=== PATIENT | male | born 1975 | race American Indian/Alaskan Native ===

== ENCOUNTER 2016-12-16 09:54 | Outpatient (CLI) | payer OTHER ==
--- NOTE | 2016-12-16 13:16 | Ultrasound Report ---
ULTRASOUND RENAL BILATERAL HISTORY: Chronic kidney disease. TECHNIQUE: transabdominal ultrasound with color Doppler interrogation. FINDINGS: The right kidney measures 11.7 x 5.3 x 4.9cm. Right renal cortex: 1.6cm. A superior pole cyst measures 0.8 cm. An inferior pole cyst measures 1.9 cm. The left kidney measures 11.2 x 5.5 x 4.5cm. Left renal cortex: 1.5cm. A superior pole cyst measures 0.9 cm. The kidneys are normal size, contour and position. There is increased renal parenchymal echotexture bilaterally. Corticomedullary differentiation is preserved. No evidence for calculus, mass, hydronephrosis or perinephric fluid. The views of the bladder and the region of the ureters appear normal. IMPRESSION: Renal parenchymal disease. Bilateral simple renal cysts.
== END 2016-12-16 09:55 | disposition home or self-care (01) ==
LOC: US 09:54 → EDSEX 09:54 → US 09:55
PROVIDERS: ATTEND Internal Medicine Nephrology
DX: N18.4 Chronic kidney disease, stage 4 (severe) (principal); N28.1 Cyst of kidney, acquired
CPT/HCPCS: 76770

== ENCOUNTER 2018-09-03 06:24 | Day surgery (SDC) | payer OTHER ==
[~2018-09-03 06:24] MED LIST: ANCEF/STERILE WATER 2 GM/20 ML 2 GM/20 ML SYRINGE IV NR; NACL 0.9% 1000 ML 1,000 ML IV SCH
[2018-09-03] MEDS ORDERED: NACL 0.9% 250ML 250 ML IV ONE (07:10)
[2018-09-03] MEDS ORDERED: HEPARIN/NS 5000 UNIT/500ML(CATH LAB) 500 ML IR ONE (08:10)
[2018-09-03] MEDS ORDERED: NACL 0.9% 250ML 250 ML ONE (08:10)
[2018-09-03] MEDS ORDERED: ANCEF/STERILE WATER 2 GM/20 ML 2 GM/20 ML SYRINGE IV ONE (08:43)
[2018-09-03] MEDS: SUBLIMAZE ONE ×2 (08:58→09:09)
[2018-09-03] MEDS: VERSED ONE ×2 (08:58→09:09)
[2018-09-03] MEDS: XYLOCAINE 2% INFILTRATI ONE ×2 (08:59→09:25)
[2018-09-03] MEDS: HEPARIN 10,000 UNITS/10 ML ONE ×4 (09:05→09:25)
--- NOTE | 2018-09-03 09:42 | Operative Report ---
Operative Report Operative Report: Operative note: Date: 09/03/2018 Preoperative diagnosis: Malfunctioning dialysis catheter on the right IJ Postoperative diagnosis: Same. Operation: Right PermCath exchange Surgeon: Chelsie Smith. Asst.: None Anesthesia: local with moderate sedation. EBL: Minimal Findings: New permacath in SVC atrial junction Indications: 43-year-old gentleman was noticed and hemodialysis to have PermCath malfunction. PermCath exchange was discussed with patient in details, all risks, benefits and alternatives of procedure were discussed, patient agreed and signed informed consent. Operative details: Patient was brought to asphalt plant laborer and positioned in the supine position with right upper chest PermCath prepped and draped in sterile fashion. A timeout performed and all team members in the agreement, we will Glidewire were inserted and advanced under fluoroscopic guidance through the venous and arterial ports of PermCath and advanced to inferior vena cava. Exit site was infiltrated with lidocaine around the PermCath site. Small incision was made just at the PermCath skin insertion point and dilated with hemostat, dissecting around cuff. However the graft appeared to be very close to the entrance site and required counter incision where cuff was dissected using Metzenbaum scissors. Old permacath was removed and new PermCath 19 cm was advanced over 2 Glidewire and inserted through the previous orifice into the proximal SVC. Wires were removed and ports were flushed with saline and checked for good blood flow. Cath ports were locked with heparin 1.6 mL in each. Patient tolerated procedure well and was transferred to PACU in stable condition.
--- NOTE | 2018-09-03 09:47 | Short Stay Summary ---
Short Stay Documentation Date of service: 09/03/18 - History H&P: obtained from office - Allergies and Medications Current Medications: Allergies No Known Allergies Allergy (Verified 09/03/18 07:08) Home Medications Medication Instructions Recorded Confirmed Last Taken Type HYDROcodone/ACETAMINOPHEN 5 mg PO BID PRN 09/03/18 09/03/18 08/31/18 History [Hydrocodone-Acetamin 5-325 mg] 1 tab Hydralazine HCl 50 mg PO TID 09/03/18 09/03/18 09/03/18 History 1 tab Labetalol [Normodyne TAB] 100 mg PO BID 09/03/18 09/03/18 09/02/18 History 1 tab glipiZIDE [Glipizide] 5 mg PO DAILY 09/03/18 09/03/18 09/02/18 History 1 tab Active Medications Cefazolin Sodium (Ancef/Sterile Water 2 Gm/20 Ml) 2 gm in 20 mls @ 80 mls/hr IV PREOP NR; Protocol Stop: 09/03/18 23:00 Sodium Chloride (Nacl 0.9% 250ml) 250 mls @ 50 mls/hr IV ONCE ONE Stop: 09/03/18 12:09 - Brief post op/procedure progress note Date of procedure: 09/03/18 Pre-op diagnosis: PermCath malfunction Post-op diagnosis: same Procedure: Right IJ PermCath exchange Anesthesia: MAC Findings: New permacath was placed with tip at the SVC atrial junction Surgeon: MARCELINO CAPUTO Estimated blood loss: minimal Pathology: none Condition: stable - Disposition Condition at discharge: Good Disposition: DC-01 TO HOME OR SELFCARE Short Stay Discharge Plan Diet: renal Follow up with: JONATHAN OLVERA MD [Primary Care Provider] - 7 Days
[2018-09-03] MEDS ORDERED: NORCO 5/325 PO PRN (09:49)
[2018-09-03 10:47] VITALS: BP 160/88
== END 2018-09-03 12:30 | disposition home or self-care (01) ==
LOC: CATHLABREC 06:24
PROVIDERS: ATTEND Surgery Vascular Surgery
DX: T82.49XA Other complication of vascular dialysis catheter, initial encounter (principal); I12.0 Hypertensive chronic kidney disease with stage 5 chronic kidney disease or end stage renal disease; N18.6 End stage renal disease; E78.00 Pure hypercholesterolemia, unspecified; Z99.2 Dependence on renal dialysis; Z79.899 Other long term (current) drug therapy; Y83.8 Other surgical procedures as the cause of abnormal reaction of the patient, or of later complication, without mention of misadventure at the time of the procedure; Y92.89 Other specified places as the place of occurrence of the external cause
CPT/HCPCS: 36245; 36247; 36415; 36556; 75726; 75774; 77001; 84132; 99156; 99157; C1750; J0690; J1644; J2250; J3010; J7050; 36581

== ENCOUNTER 2018-10-08 06:23 | Day surgery (SDC) | payer OTHER ==
[2018-10-08 07:07] LABS: Basophils # (Auto) 0.1 K/mm3 (0.0-0.1); Basophils % (Auto) 0.8 % (0.0-1.8); Eosinophils # (Auto) 0.3 K/mm3 (0.0-0.4); Eosinophils % (Auto) 3.2 % (0.0-4.3); Hematocrit 40.4 % (35.5-45.6); Hemoglobin 13.1 gm/dl (11.8-15.2); Lymphocytes # (Auto) 1.7 K/mm3 (1.2-5.4); Lymphocytes % (Auto) 20.6 % (13.4-35.0); Mean Corpuscular HGB Conc 32 % (32-34); Mean Corpuscular Volume 91 fl (84-94); Monocytes # (Auto) 0.9 K/mm3 (0.0-0.8); Monocytes % (Auto) 10.2 % (0.0-7.3); Platelet Count 246 K/mm3 (140-440); Red Blood Count 4.43 M/mm3 (3.65-5.03); Red Cell Distribution Width 16.2 % (13.2-15.2)
[2018-10-08] MEDS ORDERED: DIPRIVAN 10 MG/ML IV ONE ×2 (07:15→08:09)
[2018-10-08] MEDS ORDERED: XYLOCAINE CARDIAC IV ONE (07:15)
[2018-10-08] MEDS ORDERED: SUBLIMAZE ONE (07:15)
[2018-10-08] MEDS ORDERED: GELFOAM TP ONE ×2 (07:22→09:00)
[2018-10-08] MEDS ORDERED: MARCAINE-EPI 0.5%-1:200,000 INFILTRATI ONE ×2 (07:24→08:59)
[2018-10-08] MEDS ORDERED: NACL 0.9% 500 ML 500 ML ONE (07:24)
[2018-10-08] MEDS ORDERED: HEPARIN 10,000 UNITS/10 ML ONE (07:24)
[2018-10-08] MEDS ORDERED: NITROGLYCERIN SYRINGE 3 ML ONE (07:25)
[2018-10-08] MEDS ORDERED: XYLOCAINE 1%/ EPI 1:100,000 INFILTRATI ONE (07:27)
[2018-10-08] MEDS ORDERED: PROTAMINE SULFATE ONE (07:27)
[2018-10-08] MEDS ORDERED: PAPAVERINE ONE (07:27)
[2018-10-08] MEDS ORDERED: SODIUM BICARBONATE ONE (07:28)
[2018-10-08] MEDS ORDERED: THROMBIN (BOVINE) TP ONE ×2 (07:28→09:00)
[2018-10-08 07:31] LABS: Calcium 9.5 mg/dL (8.4-10.2)
--- NOTE | 2018-10-08 07:33 | Anesthesia Day of Surgery ---
Anesthesia Day of Surgery - Day of Surgery Patient Examined: Yes Patient H&P Reviewed: Yes Patient is NPO: Yes
--- NOTE | 2018-10-08 07:34 | Anesthesia Consultation ---
Anesthesia Consult and Med Hx Date of service: 10/08/18 - Airway Anesthetic Teeth Evaluation: Good ROM Head & Neck: Adequate Mental/Hyoid Distance: Adequate Mallampati Class: Class III Intubation Access Assessment: Possibly Difficult - Pre-Operative Health Status ASA Pre-Surgery Classification: ASA3 Proposed Anesthetic Plan: General - Pulmonary Hx Smoking: Yes (former) - Cardiovascular System Hx Hypertension: Yes (high cholesterol) - Central Nervous System Hx Psychiatric Problems: No - Endocrine Hx Renal Disease: Yes (dialysis , , thursday. ) Hx End Stage Renal Disease: Yes Hx Non-Insulin Dependent Diabetes: Yes - Other Systems Hx Cancer: No Hx Obesity: Yes (BMI 33)
[2018-10-08] MEDS ORDERED: NACL P/F VIAL (10 ML) 0 ML ONE (07:52)
[2018-10-08] MEDS ORDERED: RIFADIN ONE (07:52)
[2018-10-08] MEDS ORDERED: VERSED IV NR (08:00)
[2018-10-08] MEDS ORDERED: NEO SYNEPHRINE/NS Syringe(OR USE) IV ONE (08:26)
[2018-10-08] MEDS ORDERED: HEPARIN 10,000 UNITS/10 ML IV ONE (08:51)
[2018-10-08] MEDS ORDERED: NACL 0.9% 500 ML IRRIGATION ONE (08:58)
[2018-10-08] MEDS ORDERED: NITROGLYCERIN SYRINGE UD ONE (08:58)
[2018-10-08] MEDS ORDERED: NACL 0.9% IR ONE (09:01)
[2018-10-08] MEDS ORDERED: NARCAN 0.4 MG/1 ML IV PRN (09:30)
[2018-10-08] MEDS ORDERED: SUBLIMAZE IV PRN (09:30)
[2018-10-08] MEDS ORDERED: DILAUDID IV PRN (09:30)
[2018-10-08] MEDS ORDERED: ZOFRAN IV PRN (09:30)
--- NOTE | 2018-10-08 09:50 | Short Stay Summary ---
Short Stay Documentation Date of service: 10/08/18 - Allergies and Medications Current Medications: Allergies No Known Allergies Allergy (Verified 10/07/18 17:37) Home Medications Medication Instructions Recorded Confirmed Last Taken Type HYDROcodone/ACETAMINOPHEN 5 mg PO BID PRN 09/03/18 10/06/18 08/31/18 History [Hydrocodone-Acetamin 5-325 mg] 1 tab Hydralazine HCl 50 mg PO TID 09/03/18 10/08/18 10/08/18 History Labetalol [Normodyne TAB] 100 mg PO BID 09/03/18 10/08/18 10/08/18 History glipiZIDE [Glipizide] 5 mg PO DAILY 09/03/18 10/08/18 10/07/18 History Active Medications Fentanyl (Sublimaze) 50 mcg IV Q5MIN PRN PRN Reason: Pain , Severe (7-10) Stop: 10/08/18 15:00 Hydromorphone HCl (Dilaudid) 0.5 mg IV Q10MIN PRN PRN Reason: Pain , Severe (7-10) Stop: 10/08/18 16:00 Cefazolin Sodium (Ancef/Sterile Water 2 Gm/20 Ml) 2 gm in 20 mls @ 80 mls/hr IV PREOP NR; Protocol Stop: 10/08/18 18:00 Sodium Chloride (Nacl 0.9% 1000 Ml) 1,000 mls @ 42 mls/hr IV DIRECT MAX Midazolam HCl (Versed) 2 mg IV PREOP NR Stop: 10/08/18 23:59 Last Admin: 10/08/18 07:54 Dose: 2 mg Documented by: Naloxone HCl (Narcan 0.4 Mg/1 Ml) 0.1 mg IV Q2MIN PRN PRN Reason: Res Rate </= 8 or 02 SAT < 92% Ondansetron HCl (Zofran) 4 mg IV ONCE PRN PRN Reason: Nausea And Vomiting Stop: 10/08/18 16:00 - Brief post op/procedure progress note Date of procedure: 10/08/18 Pre-op diagnosis: end-stage renal failure Post-op diagnosis: same Procedure: Left upper extremity radial artery to basilic vein fistula at the elbow Anesthesia: GETA, local Findings: Good thrill in the fistula at the end of the procedure. Good left radial pulse at the end of the procedure. Surgeon: CATHI RANDALL Estimated blood loss: minimal Pathology: none Condition: stable - Hospital course Hospital course: Benign - Disposition Condition at discharge: Good Disposition: DC-01 TO HOME OR SELFCARE Short Stay Discharge Plan Activity: advance as tolerated Diet: advance as tolerated Wound: per your surgeon's advice Follow up with: CATHI RANDALL MD [Staff Physician] - 14 Days Prescriptions: HYDROcodone/APAP 5-325 [[place] 5/325] 1 each PO Q6HR PRN #30 tablet PRN Reason: Pain
--- NOTE | 2018-10-08 09:53 | Operative Report ---
Operative Report Operative Report: Date of procedure: 10/08/2018 Pre-operative diagnosis: End-stage renal failure Post-operative diagnosis: Same Procedure name(s): Basilic vein to radial artery fistula at the level of the elbow in the left upper extremity Surgeon: Marvin Yates MD [employer] Specialist: None Anesthesia: Local MAC EBL: Less than 50 mL Operative indication: Patient is a 43 year old man with a history of end-stage renal failure. The patient presents for establishment of long-term hemodialysis access. Findings: Excellent thrill in the arteriovenous fistula at the end of the procedure. Easily palpable radial pulse distal to the anastomosis. Procedure: The patient was placed on the table in the supine position. The left arm was prepped with ChloraPrep solution and draped in the usual sterile fashion. The ultrasound was used to identify the superficial veins of the left upper extremity. Preoperative vein mapping indicated that the cephalic vein was inadequate in diameter. This was confirmed at the time of surgery today. 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 I did not identify that on ultrasound today. There were a few areas where the wall of the vein seemed brighter than expected but no obvious thrombus or synechia were noted. The vein was easily compressible throughout and of excellent caliber. I noted that the patient's blood pressure was chronically lower than expected. It made sense to use a decent vein and avoid placing the graft under the circumstances. Under local anesthesia, an incision was made just below the elbow. Dissection was carried out to identify the basilic vein. Dissection was also carried out to identify the radial artery. The vein was dissected from the surrounding tissue to provide enough length to reach the artery. A branch point of the vein was spatulated for the anastomosis. Nitroglycerin was instilled into the vein to dwell while the anastomosis was created. An arteriotomy was made in the artery. Nitroglycerin was instilled into the proximal portion of the artery as well. An end-to-side anastomosis was created using running 7-0 Prolene. A #2 Ryder catheter was used to make sure all vessels were patent. The anastomosis was completed and flow started into the fistula. There was a strong thrill up the arm. Hemostasis was obtained. The wound was infiltrated with half percent Marcaine and epinephrine. Closure was done with 3-0 Vicryl and 4-0 subcuticular PDS. Dermabond was placed. The patient tolerated the procedure well. There was an easily palpable left radial pulse at the end of the procedure. There was a good thrill in the fistula at the end of the procedure. Sponge, needle, and instrument counts were reported as correct.
[2018-10-08 10:49] VITALS: BP 110/61
--- NOTE | 2018-10-09 09:19 | Post Anesthesia Evaluation ---
- Post Anesthesia Evaluation Patient Participated: Yes Airway Patent: Yes Stable Respiratory Function: Yes Nausea/Vomiting: No Temp > 96.8F: Yes Pain Manageable: Yes Adequeate Hydration: Yes Anesthesia Complications: No
== END 2018-10-08 11:30 | disposition home or self-care (01) ==
LOC: OR 06:23
PROVIDERS: ATTEND Surgery Vascular Surgery
DX: I12.0 Hypertensive chronic kidney disease with stage 5 chronic kidney disease or end stage renal disease (principal); E11.22 Type 2 diabetes mellitus with diabetic chronic kidney disease; N18.6 End stage renal disease; E66.9 Obesity, unspecified; E78.00 Pure hypercholesterolemia, unspecified; Z68.33 Body mass index [BMI] 33.0-33.9, adult; Z99.2 Dependence on renal dialysis; Z87.891 Personal history of nicotine dependence; Z98.890 Other specified postprocedural states; Z79.899 Other long term (current) drug therapy; Z86.2 Personal history of diseases of the blood and blood-forming organs and certain disorders involving the immune mechanism
CPT/HCPCS: 36415; 36821; 80048; 82962; 85025; A4649; C1757; J0690; J1644; J2001; J2250; J2370; J2405; J2704; J3010; J7030; J7040; J2440; J2720; J3490